=== PATIENT | female | born 1955 | race Caucasian/White ===

== ENCOUNTER 2020-06-19 10:32 | Outpatient (CLI) | payer OTHER, SELFPAY ==
--- NOTE | ~2020-06-19 | MM_ITS ---
EXAMINATION: MM screening gretel BI w dottie HISTORY: Screening TECHNIQUE: Craniocaudal and mediolateral oblique 3-D tomosynthesis images were obtained and synthetic 2-D images were generated. CAD analysis was submitted and interpreted. COMPARISON: Comparison to multiple prior studies sequentially, with oldest reviewed study dated 06/2014. BREAST PARENCHYMAL COMPOSITION: The breasts are heterogeneously dense, which may obscure small masses . FINDINGS: There is no evidence of suspicious mass, calcification, or architectural distortion to sugg est malignancy in either breast. There has been no suspicious interval change. IMPRESSION: 1. No mammographic evidence of malignancy. 2. Recommend routine screening mammography in one year. BI-RADS Category 1: Negative Reviewed, dictated and finalized at location A.
== END 2020-06-19 10:33 | disposition home or self-care (01) ==
LOC: ANHIMG 10:34
PROVIDERS: PCP Internal Medicine; Visit Provider Obstetrics & Gynecology
DX: Z12.31 Encounter for screening mammogram for malignant neoplasm of breast (principal)
CPT/HCPCS: 77063; 77067

== ENCOUNTER 2021-08-30 08:00 | Outpatient (CLI) | payer MEDICARE, OTHER, SELFPAY ==
--- NOTE | ~2021-08-30 | MM_ITS ---
EXAMINATION: MM screening gretel BI w dottie HISTORY: Screening TECHNIQUE: Craniocaudal and mediolateral oblique 3-D tomosynthesis images were obtained and synthetic 2-D images were generated. CAD analysis was submitted and interpreted. COMPARISON: Comparison to multiple prior studies sequentially, with oldest reviewed study dated 05/30. BREAST PARENCHYMAL COMPOSITION: The breasts are heterogeneously dense, which may obscure small masses . FINDINGS: There is no evidence of suspicious mass, calcification, or architectural distortion to sugg est malignancy in either breast. There has been no suspicious interval change. IMPRESSION: 1. No mammographic evidence of malignancy. 2. Recommend routine screening mammography in one year. BI-RADS Category 1: Negative Reviewed, dictated and finalized at location A.
== END 2021-08-30 08:01 | disposition home or self-care (01) ==
LOC: ANHIMG 08:04
PROVIDERS: PCP Internal Medicine; Visit Provider Obstetrics & Gynecology
DX: Z12.31 Encounter for screening mammogram for malignant neoplasm of breast (principal)
CPT/HCPCS: 77063; 77067

== ENCOUNTER 2022-07-25 02:06 | Day surgery (SDC) | payer MEDICARE, OTHER, SELFPAY ==
[2022-07-23 10:50] VITALS: BMI 22.0
--- NOTE | 2022-07-23 11:00 | PC.NURSE ---
Report to the Outpatient Waiting Room, entrance under the green pavilion located off [facility], at time ___0600____ on date ___07/25/22____. OR Time: . - You and your visitor will be asked to self-screen and do not enter if you have any COVID symptoms. - Only one visitor and NO children visitors are allowed at this time. - The patient visitor is requested to leave or wait in car when not with patient due to restrictions. - A mask is required within the hospital. Patients may have clear liquids (water, carbonated beverages, clear teas, apple juice) until 3 hours prior to surgery (0430 AM)with a maximum of 20 ounces. - No food from midnight until time of surgery - Infants may have breast milk until 4 hours before surgery, infant formula 6 hours prior to surgery. - Children will be allowed to drink immediately following surgery. If applicable, please bring a bottle or sippy cup to assist with drinking. Juice, water, soda, and popsicles are readily available. For infants on formula, please bring formula the day of surgery. Pacifiers are allowed. Take the following medications with a SIP of water the morning of surgery: _CITALOPRAM, LEVOTHYROXINE_ Medications to discontinue per physician N/A Date to take last dose Please no make-up, nail german, hairspray, perfume, deodorant, or body powder the day of surgery. No jewelry (including any body piercings) or valuables the day of surgery, leave them at home. Please take a shower or bath the night before, or the morning of, surgery with an antibacterial soap. Wear comfortable, loose fitting clothing. Children are encouraged to wear pajamas. - Jewelry must be removed prior to entering the operating room. Rings and piercings that are not removed may be cut off. - The hospital will not accept responsibility for valuables. - Please leave all valuables, including medications, at home the day of surgery. If you are going home after surgery, a licensed goat driver must drive you home. - NO public transportation without another adult. - We recommend that an adult stay with you for 24 hours following discharge. - We also recommend that you do not drive, make important decision, drink alcoholic beverages, or take any drugs that were not prescribed by your health care provider for at least 24 hours after your discharge time. For Pediatric surgeries, we recommend two adults accompany the child home (only one inside the building at this time). Follow any additional instructions given to you from your surgeon. If you or anyone in your household have experienced Covid symptoms in the past week, please notify your surgeon or the nurse liaison at the phone number below for possible testing. Telephone instructions given to ____PT and asked if any additional questions and then verbalized understanding. Patient advised to call surgeon office or pre surgery nurse liaison [phone] if any additional questions.
[2022-07-25] VITALS (7 sets, daily range): BP systolic 91–151; BP diastolic 60–87; PULSE 53–66; RESP 12–20; TEMP 36.2–37; O2SAT 100
[2022-07-25] MEDS: LACTATED RINGERS 1,000 ML 30 ML IV CONT (06:30)
--- NOTE | 2022-07-25 06:46 | WPDHPUPDATE1 ---
History and Physical Update Update Date/Time: 07/25/22 06:46 History and Physical has been reviewed, including an updated exam of the patient. There are NO changes in the patient's condition. Risks, benefits, and alternatives have been discussed and questions answered. Patient agrees to proceed with procedure.
--- NOTE | 2022-07-25 06:51 | WPDANESEPPF ---
Anes - Initial Pre Proc Eval Procedure: Operation Date: 07/25/22 07:30 Proposed Procedures p Cystoscopy, with Extraction of Foreign Body from Bladder - Leonel Lyn MD Date/Time: 07/25/22 06:51 Surgeon: Leonel Lyn MD Pre Op Diagnosis: gross hematuria, bladder wall thickening Patient Data Age: 66 Gender: F Height: 1.6 m Weight: 56.36 kg Allergies Allergy/AdvReac Type Severity Reaction Status Date / Time No Known Allergies Allergy Unknown Verified 07/25/22 06:35 Home Medications Medication Instructions Recorded Confirmed Type cholecalciferol (vitamin D3) 50 50 mcg PO DAILY 07/23/22 07/23/22 History mcg (2,000 unit) tablet cholestyramine (with sugar) 4 gram 4 g PO QAM 07/23/22 07/23/22 History powder for susp in a packet citalopram 20 mg tablet 20 mg QAM 07/23/22 07/23/22 History cyanocobalamin (vitamin B-12) 1,000 mcg PO EVERY OTHER DAY 07/23/22 07/23/22 History 1,000 mcg tablet levothyroxine 125 mcg tablet 125 mcg QAM 07/23/22 07/23/22 History Patient hx anesthesia problems: post op nausea/vomiting Family hx anesthesia problems: none Results Review: All pre-operative results and documents have been reviewed as part of the pre-operative evaluation. ON LICENSE OF [facility] Past Medical History Medical History (Updated 07/25/22 @ 06:51 by Jose Meyers MD) Anxiety Hypothyroid Social History Social History Smoking status: Never smoker Second hand tobacco smoke exposure: No Alcohol intake: never Substance use: never Substance use type: does not use Living arrangements: with family Spiritual care concerns: No Anes - Eval Final PreProcedure Day of Procedure 07/25/22 06:51 Patient weight: normal Heart: regular rate and rhythm Lungs: clear to auscultation Airway: Mallampati scale class 1 Neurological: alert and oriented Last oral intake: >/= 8 hours ASA classification: II Emergent: no Anesthetic plan: proceed Anesthesia type and monitoring: general LMA and standard monitoring Results Review: All pre-operative results and documents have been reviewed as part of the pre-operative evaluation. Informed Consent: The patient's anesthetic plan and its attendant risks and benefits were discussed with the patient/family/POA. Questions were solicited and answers provided to the satisfaction of the patient/family/POA.
[2022-07-25] MEDS: ceFAZolin 2 GM/D5W 50 ML 2 GM/50 ML BAG IVPB (07:23)
[2022-07-25] MEDS: LIDOCAINE HCL 2% GEL UROJET 10 ML PKG MUCOUS MEM (07:30)
--- NOTE | 2022-07-25 07:48 | W.PM.PROC2 ---
Procedure Note - Detailed Date of Procedure 07/25/22 Pre-op Diagnosis Hematuria, foreign body in bladder Post-op Diagnosis Same Procedure Performed Cystoscopy, extraction foreign body Surgeon Leonel Lyn MD Description of Procedure This atient is brought the op suite she was prepped draped in routine sterile fashion while in dorsal lithotomy position after the uneventful induction of a general LMA anesthetic. Cystoscopy is undertaken with a 19 F rigid cystoscope. Bladder was carefully inspected and found to have a small, unusual foreign body that has an appearance of a calcified stitch just inside the bladder neck at about the 5:30 position. This is extracted with ease using a grasping forceps. It does not appear to be attached to deeper structures in the bladder wall or outside the bladder. There was no bleeding at the base upon removal. The remainder of the bladder mucosa is normal without hyperemia or additional foreign bodies. She has a single orthotopic ureteral orifice with clear efflux bilaterally. Drains No Packing No Pathology None sent Complications No immediate complications
[2022-07-25] MEDS: SCOPOLAMINE 1.5 MG PATCH TRANSDERM (07:49)
== END 2022-07-25 08:55 | disposition home or self-care (01) ==
PROVIDERS: PCP Internal Medicine; Visit Provider Urology
PROC: 0TCB8ZZ Extirpation of Matter from Bladder, Via Natural or Artificial Opening Endoscopic (ICD-10-PCS; CPT 52352; principal; 2022-07-25 07:30)
DX: T19.1XXA Foreign body in bladder, initial encounter (principal); Y83.8 Other surgical procedures as the cause of abnormal reaction of the patient, or of later complication, without mention of misadventure at the time of the procedure; N32.81 Overactive bladder; E03.9 Hypothyroidism, unspecified; E78.00 Pure hypercholesterolemia, unspecified; F41.9 Anxiety disorder, unspecified
CPT/HCPCS: 52310; 88300; A9270; J0690; J1100; J2250; J2405; J2704; J3010; J7120

== ENCOUNTER 2022-10-02 13:07 | Outpatient (CLI) | payer MEDICARE, OTHER, SELFPAY ==
--- NOTE | ~2022-10-02 | MM_ITS ---
EXAMINATION: MM screening gretel BI w dottie HISTORY: Screening TECHNIQUE: Craniocaudal and mediolateral oblique 3-D tomosynthesis images were obtained and synthetic 2-D images were generated. CAD analysis was submitted and interpreted. COMPARISON: Comparison to multiple prior studies sequentially, with oldest reviewed study dated 05/31. BREAST PARENCHYMAL COMPOSITION: There are scattered areas of fibroglandular density. FINDINGS: There is no evidence of suspicious mass, calcification, or architectural distortion to sugg est malignancy in either breast. There has been no suspicious interval change. IMPRESSION: 1. No mammographic evidence of malignancy. 2. Recommend routine screening mammography in one year. BI-RADS Category 1: Negative Reviewed, dictated and finalized at location A. [employer]
== END 2022-10-02 13:08 | disposition home or self-care (01) ==
PROVIDERS: PCP Nurse Practitioner Family; Visit Provider Obstetrics & Gynecology
DX: Z12.31 Encounter for screening mammogram for malignant neoplasm of breast (principal)
CPT/HCPCS: 77063; 77067

== ENCOUNTER → 2023-05-15 11:11 | Outpatient (CLI) | payer MEDICARE, OTHER, SELFPAY ==
--- NOTE | ~2023-05-15 | CT_ITS ---
EXAMINATION: CT sinus wo con DATE: 05/15/2023 11:29 INDICATION: Chronic sinusitis, unspecified TECHNIQUE: Computed tomography (CT) of the paranasal sinuses was performed without intravenous contra st. The dose-length product (DLP) was 439.29 mGy-cm. Iterative reconstruction was used. COMPARISON: None FINDINGS: There is normal development and pneumatization of the paranasal sinuses. The frontal, sphen oid, ethmoid, and maxillary sinuses are clear. The bilateral ostiomeatal complexes are patent. Visual ized soft tissues are unremarkable. IMPRESSION: 1. Clear sinuses. Reviewed, dictated and finalized at location L. IMPRESSION: 1. Clear sinuses.
== END ==
PROVIDERS: PCP Nurse Practitioner Family; Visit Provider Otolaryngology
DX: J32.9 Chronic sinusitis, unspecified (principal)
CPT/HCPCS: 70486

== ENCOUNTER 2023-10-28 12:33 | Emergency (ER) | payer MEDICARE, OTHER, SELFPAY ==
--- NOTE | 2023-10-28 13:14 | ED.GENADULT ---
HPI - General Adult General Chief complaint: Upper Respiratory Infection Stated complaint: headaches right side Source: patient and RN notes reviewed Mode of arrival: ambulatory Limitations: no limitations History of Present Illness HPI narrative: 68-year-old female presented for complaint of right sided headache for 3 days. She endorses pain is stabbing and pressure to right forehead, behind the eyeball, and feels like the eye will be pulled out of the back of her head. Pain is constant, rates 7/10 at this time, Pain increased in intensity in the evening and again early mornings. Associated with right eye tearing, occasional brief episodes of blurred vision, mild photophobia, nausea. States this pain is worse than any migraine or sinus pain she has ever had. Has not been taking any migraine medication stating it does not help. Went to chiropractor today for an adjustment without relief. Related Data Home Medications Medication Instructions Recorded Confirmed cholecalciferol (vitamin D3) 50 50 mcg PO DAILY 07/23/22 10/28/23 mcg (2,000 unit) tablet cholestyramine (with sugar) 4 gram 4 g PO QAM 07/23/22 10/28/23 powder for susp in a packet citalopram 20 mg tablet 20 mg QA 07/23/22 10/28/23 cyanocobalamin (vitamin B-12) 1,000 mcg PO EVERY OTHER DAY 07/23/22 10/28/23 1,000 mcg tablet levothyroxine 125 mcg tablet 125 mcg QA 07/23/22 10/28/23 simvastatin 10 mg tablet 10 mg PO DAILY 05/13/23 10/28/23 Allergies Allergy/AdvReac Type Severity Reaction Status Date / Time No Known Allergies Allergy Unknown Verified 10/28/23 13:04 Review of Systems Review of Systems: CONSTITUTIONAL: Denies body aches, fever, chills, or sweats. EYES: reports occasional blurred vision, photophobia; denies redness, or discharge. ENT: Denies rhinorrhea, congestion, sore throat, or otalgia. CARDIOVASCULAR: Denies chest pain, palpitations, or edema. RESPIRATORY: Denies cough or dyspnea. GASTROINTESTINAL: Reports nausea denies abdominal pain, vomiting, or diarrhea. SKIN: Denies rash, itching, or wounds. MUSCULOSKELETAL: Denies back pain, joint pain, or myalgia. NEUROLOGIC: Endorses headache, denies numbness, tingling, or weakness, dizziness All systems reviewed & are unremarkable except as noted in HPI and below PMFSH Past Medical History Medical History Anxiety Chronic sinus infection Hypothyroid Social History Social History Smoking status: Never smoker Second hand tobacco smoke exposure: No Alcohol intake: never Substance use: never Substance use type: does not use Living arrangements: with family Spiritual care concerns: No Comments At time of signature, I have reviewed and agree with nursing past medical, surgical, social and family history unless otherwise noted. Please see nursing chart for further information. There is no relevant family history pertinent to the presenting complaint Exam Narrative: GENERAL: Well-appearing, well-nourished HEAD: Normocephalic, atraumatic. EYES: PERRLA, EOMI. No drainage or conjunctival injection. Frequent blinking. Able to close eyelids completely. No ptosis. ENT: Mucous membranes pink and moist. No rhinorrhea. TMs normal bilaterally. NECK: Normal AROM. Mild right paraspinal tenderness with palpation. Supple. No lymphadenopathy. CHEST: No respiratory distress. Clear to auscultation. HEART: Regular rate and rhythm. No murmur appreciated. Normal peripheral pulses. ABDOMEN: Soft, nontender, nondistended, normal active bowel sounds. EXTREMITIES: Normal range of motion. No edema. SKIN: Warm, dry, no rash. Capillary refill normal. Normal skin turgor. NEURO:No focal deficits. Alert and oriented x3. EOMs intact without nystagmus. No facial droop/asymmetry noted bilaterally. Grimace intact. Intact sensation in face. Hearing intact bilaterally. Shoulder shrug intact. Ambul
[2023-10-28 13:26] VITALS: BP 122/66; PULSE 80; RESP 16; TEMP 36.6; O2SAT 100
== END 2023-10-28 13:33 | disposition left against medical advice (07) ==
LOC: EXPTROY 12:38
PROVIDERS: Emergency Provider Nurse Practitioner Family
DX: R51.9 Headache, unspecified (principal); F41.9 Anxiety disorder, unspecified; E03.9 Hypothyroidism, unspecified
CPT/HCPCS: 99211; G0463

== ENCOUNTER 2024-04-07 09:37 | Outpatient (CLI) | payer MEDICARE, OTHER, SELFPAY ==
--- NOTE | ~2024-04-07 | MM_ITS ---
EXAMINATION: MM screening gretel BI w dottie HISTORY: Screening TECHNIQUE: Craniocaudal and mediolateral oblique 3-D tomosynthesis images were obtained and synthetic 2-D images were generated. CAD analysis was submitted and interpreted. COMPARISON: Comparison to multiple prior studies sequentially, with oldest reviewed study dated 06/06. BREAST PARENCHYMAL COMPOSITION: Dense: The breasts are heterogeneously dense, which may obscure small masses FINDINGS: There is no evidence of suspicious mass, calcification, or architectural distortion to sugg est malignancy in either breast. There has been no suspicious interval change. IMPRESSION: 1. No mammographic evidence of malignancy. 2. Recommend routine screening mammography in one year. BI-RADS Category 1: Negative Reviewed, dictated and finalized at location A.
== END 2024-04-07 09:38 | disposition home or self-care (01) ==
PROVIDERS: Visit Provider Obstetrics & Gynecology
DX: Z12.31 Encounter for screening mammogram for malignant neoplasm of breast (principal)
CPT/HCPCS: 77063; 77067

== ENCOUNTER 2025-04-22 09:59 | Outpatient (CLI) | payer MEDICARE, OTHER, SELFPAY ==
--- NOTE | ~2025-04-22 | MM_ITS ---
EXAMINATION: MM screening [facility] BI w dottie HISTORY: Screening TECHNIQUE: Craniocaudal and mediolateral oblique 3-D tomosynthesis images were obtained and synthetic 2-D images were generated. CAD analysis was submitted and interpreted. COMPARISON: 04/07/2024 through 06/19/2020. BREAST PARENCHYMAL COMPOSITION: The breasts are extremely dense, which lowers the sensitivity of mamm ography. FINDINGS: There is no evidence of suspicious mass, calcification, or architectural distortion to sugg est malignancy in either breast. There has been no suspicious interval change. IMPRESSION: 1. No mammographic evidence of malignancy. 2. Recommend routine screening mammography in one year. BI-RADS Category 1: Negative Reviewed, dictated and finalized at location B.
--- OUTSIDE RECORDS SUMMARY | 2025-04-22 10:13 | XMS_ITS | Referral Summary ---
Author Organization [facility] [address] Address [address] [place] [address] Care Team Providers Care Ornithology Teacher Name Role Phone Rebekah Haas NP Primary Care Provider [phone] Allergies No known active allergies Medications levothyroxine (SYNTHROID) 125 mcg tablet Take 125 mcg by mouth daily 12/22/2021 Active citalopram (CeleXA) 20 mg tablet Take 10 mg by mouth daily 10/29/2021 Active simvastatin (ZOCOR) 10 mg tablet Take 10 mg by mouth nightly 12/30/2021 Active cholestyramine (QUESTRAN) 4 gram packet DISSOLVE 1 SCOOP IN WATER & DRINK ONCE DAILY DIRECTED 11/03/2020 Active cyanocobalamin (Vitamin B-12) 100 mcg tablet Take 1 tablet by mouth daily 09/08/2012 Active cholecalciferol (VITAMIN D-3) 2000 unit tablet Take by mouth daily 08/25/2017 Active Active Problems No known active problems Social History Tobacco Use Types Packs/Day Years Used Date Smoking Tobacco: Never Personal Safety Answer Date Recorded Getting School Help Needed Not on file 01/17 Comments Unknown Sex and Gender Information Value Date Recorded Sex Assigned at Not on file Legal Sex Female 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 Gender Identity Not on file Sexual Orientation Not on file Last Filed Vital Signs Vital Sign Reading Time Taken Comments Blood Pressure 143/88 01/15/2022 12:36 PM SEWER PIPE CLEANER Pulse 91 01/15/2022 12:36 PM SEWER PIPE CLEANER Temperature 37 C (98.6 F) 01/15/2022 12:36 PM SEWER PIPE CLEANER Respiratory Rate 16 01/15/2022 12:36 PM SEWER PIPE CLEANER Oxygen Saturation 99% 01/15/2022 12:36 PM SEWER PIPE CLEANER Inhaled Oxygen Concentration - - Weight 56.2 kg (124 lb) 01/15/2022 12:36 PM SEWER PIPE CLEANER Height 160 cm (5' 3) 01/15/2022 12:36 PM SEWER PIPE CLEANER Body Mass Index 21.97 01/15/2022 12:36 PM SEWER PIPE CLEANER Plan of Treatment Not on file Insurance MEDICARE [facility] Care Teams Ornithology Teacher Relationship Specialty [place] [address] [address] [address] PCP - General Nurse Practitioner 01/15/22
--- OUTSIDE RECORDS SUMMARY | 2025-04-22 10:13 | XMS_ITS | Encounter Summary ---
Author Organization [facility] Address [address] [place] [address] Care Team Providers Care Precision Instrument Maker Name Role Phone Eleanor Osuna MD Primary Care Provider Encounter Details Date Type Department Care Team (Late st Contact Info) Description 05/27/2019 Lab Requisition [facility] [address] [place] [address] Patricia Mitchell MD [address] [place], [place] [id number] Gross hematuria Social History Tobacco Use Types Packs/Day Years Used Date Smoking Tobacco: Never Assessed Comments Unknown Sex and Gender Information Value Date Recorded Sex Assigned at Not on file Legal Sex Female 1:05 PM CDT Gender Identity Not on file Sexual Orientation Not on file documented as of this encounter Plan of Treatment Not on file documented as of this encounter Procedures Procedure Name Priority Date/Time Associated Diagnosis Comments PATHOLOGY TISSUE Routine 05/25/2019 1:30 PM CDT Gross hematuria documented in this encounter Results * PATHOLOGY TISSUE (05/25/2019 1:30 PM CDT) Case Report Surgical Pathology Report Case: [id number] Authorizing Provider: Patricia Mitchell MD Collected: 05/25/2019 01:30 PM Pathologist: Saji Figueroa MD Received: 05/27/2019 01:30 PM Specimen: Urine 05/28/2019 9:51 AM CDT [facility] Final Diagnosis Urine, voided, Thin Prep, cytology: - Negative for a high-grade urothelial neoplasm Benign urothelial cells admixed with benign squamous cells 05/28/2019 9:51 AM CDT [facility] at 0950 CDT Clinical History Hematuria; cytoscopy negative. 05/28/2019 9:51 AM CDT [facility] Gross Description Prepared slide (1) received from [facility] labeled [id number], Roz Zapata. All material will be returned. 05/28/2019 9:51 AM CDT [facility] Disclaimer The performance characteristics of all immunohistochemical and indirect immunofluorescence stains (if any) cited in this report were determined by the [facility]opathology [facility] of [facility]. Some of these tests were developed by our own laboratory and have not been cleared or approved by the US Food and Drug Administration. The FDA does not require this test to go through premarket FDA review. These tests are used for clinical purposes. They should not be regarded as investigational or for research. This laboratory is certified under the Clinical Laboratory Improvement Amendments (CLIA) as qualified to perform high complexity clinical laboratory testing. This case has been personally reviewed and interpreted by the attending (teaching) pathologist. 05/28/2019 9:51 AM CDT [facility] Embedded Images 05/28/2019 9:51 AM CDT [facility] Pathology/Cytolo gy URINE / Unknown 05/25/2019 1:30 PM CDT 05/27/2019 1:30 PM CDT us Patricia Mitchell MD LAB - PATHOLOGY/CYTOLOGY ORDERAB LES Final Result Performing Organization Address City/State/[facility] Co de Phone Number [facility] [address] [phone] documented in this encounter Visit Diagnoses Diagnosis Gross hematuria documented in this encounter Care Teams Precision Instrument Maker Relationship Specialty Start Date End Date Eleanor Osuna MD PCP - General 07/30/22 documented as of this encounter
--- OUTSIDE RECORDS SUMMARY | 2025-04-22 10:13 | XMS_ITS | Clinical Summary ---
Author Organization [facility] [address] Address [address] [place] [address] Care Team Providers Care Accounts Receivable Processor Name Role Phone Rebekah Haas NP Primary Care Provider [phone] Allergies No known active allergies Medications levothyroxine [...] Active Active Problems No known active problems Surgical History Surgery Date Site/Laterality Comments HYSTERECTOMY Social History Tobacco Use Types Packs/Day Years Used Date Smoking Tobacco: Never Personal Safety Answer Date Recorded Getting School Help Needed Not on file 01/17 Comments Unknown Sex and Gender Information Value Date Recorded Sex Assigned at Not on file Legal 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 Gender Identity Not on file Sexual Orientation Not on file Obstetrics History Last Filed Vital Signs Vital Sign Reading Time Taken Comments Blood Pressure 143/88 01/15/2022 12:36 PM DIE CASTING MACHINE OPERATOR Pulse 91 01/15/2022 12:36 PM DIE CASTING MACHINE OPERATOR Temperature 37 C (98.6 F) 01/15/2022 12:36 PM DIE CASTING MACHINE OPERATOR Respiratory Rate 16 01/15/2022 12:36 PM DIE CASTING MACHINE OPERATOR Oxygen Saturation 99% 01/15/2022 12:36 PM DIE CASTING MACHINE OPERATOR Inhaled Oxygen Concentration - - Weight 56.2 kg (124 lb) 01/15/2022 12:36 PM DIE CASTING MACHINE OPERATOR Height 160 cm (5' 3) 01/15/2022 12:36 PM DIE CASTING MACHINE OPERATOR Body Mass Index 21.97 01/15/2022 12:36 PM DIE CASTING MACHINE OPERATOR Plan of Treatment Health Maintenance Due Date Last Done Comments Breast Cancer Screening-Mammogram 1956 Colon Cancer Screening-Colonoscopy 1955 Depression Screening 1956 Fall Risk Assessment 1955 Hepatitis C Screening 1956 Osteoporosis Screening-Bone Density Scan 1956 DTaP/Tdap/Td Vaccine (1 - Tdap) 1967 Hepatitis B Screening 1974 Well Visit 65+ 2021 Pneumococcal vaccine 65+ (2 of 2 - PPSV23) 09/08/2022 09/08/2021, 09/12/2015 Covid-19 Vaccine (4 - 2023-2 5 season) 2024 09/17/2021, 02/19/2021, 01/28/2021 Influenza Vaccine (Season Ended) 2025 09/08/2021, 08/12/2020, 08/17/2019, Additional history exists Zoster Vaccine Completed 01/03/2021, 07/19, 08/09/2016 [place] [address] [facility] [place] [address] Care Teams Accounts Receivable Processor Relationship Specialty [place] [address] [address] [address] PCP - General Nurse Practitioner 01/15/22
--- OUTSIDE RECORDS SUMMARY | 2025-04-22 10:13 | XMS_ITS | Clinical Summary ---
Author Organization [facility] Address [address] [place] [address] Care Team Providers Care Bookkeeping Clerks Supervisor Name Role Phone Eleanor Osuna MD Primary Care Provider [phone] [facility],non-owned Affiliates and Associated Physician Practices is amultiple site organization consisting of ambulatory clinics and hospital sitesin [place], [place], [place] and [place]. This disclosure is being madepursuant to the Care Everywhere program and may not contain all information available regarding this patient. Last updated 18.[facility] [employer] Social History Tobacco Use Types Packs/Day Years Used Date Smoking Tobacco: Never Assessed Comments Unknown Sex and Gender Information Value Date Recorded Sex Assigned at Not on file Legal Sex Female 1:05 PM CDT Gender Identity Not on file Sexual Orientation Not on file Plan of Treatment Health Maintenance Due Date Last Done Comments BONE DENSITY TESTING 1956 COLOGUARD (AGES 45-75) - COL ON CA SCREENING 1956 COLON MONITORING 1956 COLONOSCOPY - COLON CA SCREENING 1956 CT COLONOGRAPHY - COLON CA SCREENING 1956 Colorectal Cancer Screening 1956 FIT - COLON CA SCREENING 1956 FLEX SIG - COLON CA SCREENING 1956 LIPID TESTING 1956 MAMMOGRAM 1956 HEPATITIS C SCREENING 07/22/1974 DTAP/TDAP/TD VACCINES (1 - Tdap) 1975 PNEUMOCOCCAL VACCINE 50+ (1 of 1 - PCV) 2006 ZOSTER VACCINE (1 of 2) 2006 COVID-19 VACCINE ( - 2023-2 5 season) 2024 DEPRESSION SCREENING 11/17/2024 INFLUENZA VACCINE (Season Ended) 2025 Respiratory Syncytial Virus (RSV) Vaccine Pt: or over 60 yrs (1 - 1-dose 75+ series) 2031 HEPATITIS B VACCINE Aged Out No longe r eligible based on patient's age to complete this topic HIB VACCINE Aged Out No longer eligi ble based on patient's age to complete this topic HPV VACCINE Aged Out No longer eligi ble based on patient's age to complete this topic MENINGOCOCCAL (Group B) VACC INE SHARED DECISION-MAKING Aged Out No longer eligibl e based on patient's age to complete this topic MENINGOCOCCAL GROUPS A/C/Y/W VACCINE Aged Out No longer eligible b ased on patient's age to complete this topic Insurance MEDICARE [address] [place] [address] [place] [address] [place] [address] [place] [address] [place] [address] Care Teams Bookkeeping Clerks Supervisor Relationship Specialty Start Date End Date Eleanor Osuna MD PCP - General 07/30/22
== END 2025-04-22 10:00 | disposition home or self-care (01) ==
LOC: ANHIMG 10:02
PROVIDERS: PCP Registered Nurse; Visit Provider Registered Nurse
DX: Z12.31 Encounter for screening mammogram for malignant neoplasm of breast (principal)
CPT/HCPCS: 77063; 77067